=== PATIENT | female | born 1955 | race Two or more races ===

== ENCOUNTER 2019-09-14 09:55 | Emergency (ER) | payer MEDICARE, MEDICAID ==
[~2019-09-14] VITALS: Ht 167.6 cm; Wt 77.1 kg
[~2019-09-14 09:55] MED LIST: ASPI-807 PO; ATEN25TA PO; VALS40TA4 PO
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
[2019-09-14] MEDS ORDERED: LORAZEPAM INJ 2 MG/ML VIAL ONE (10:12)
--- NOTE | 2019-09-14 10:13 | NUR ---
WITNESSED 1.5MG ATIVAN WASTED BY MARTÍNEZ HENDRICKS RN INSTEAD OF 1MG.
--- NOTE | 2019-09-14 10:13 | NUR ---
WASTED 1.5MG OF ATIVAN 2MG/ML. WITNESSED WASTE BY JESENIA PENNY RN.
[2019-09-14] MEDS ORDERED: LORAZEPAM INJ 2 MG/ML VIAL IM ONE (10:30)
--- NOTE | 2019-09-14 10:33 | NUR ---
BROUGHT TO RADIOLOGY VIA [facility] FOR XRAY
--- NOTE | 2019-09-14 10:50 | NUR ---
[place] [employer] AT BEDSIDE
--- NOTE | 2019-09-14 10:56 | NUR ---
HARLEEN JOVEL ([id number]) AT BS.
[2019-09-14] MEDS ORDERED: ACETAMINOPHEN ES 500 MG TABLET ONE (11:16)
[2019-09-14] MEDS ORDERED: ACETAMINOPHEN ES 500 MG TABLET PO ONE (11:30)
--- NOTE | 2019-09-14 12:11 | NUR ---
WHEELED OUT VIA [facility] FOR CT SCAN
[2019-09-14] MEDS ORDERED: MORPHINE SULFATE INJ 2 MG/ML DISP.SYRIN IV ONE (13:00)
--- NOTE | 2019-09-14 13:10 | NUR ---
DR GIRARD SPEAKING WITH DR FAM
[2019-09-14 13:12] LABS: BASOPHILS # (AUTO) 0.1 /CMM (0.0-0.2); BASOPHILS % (AUTO) 0.8 % (0.0-2.0); EOSINOPHILS % (AUTO) 0.3 % (0.0-6.0); HEMATOCRIT 39 % (33-45); HEMOGLOBIN 12.8 g/dL (11.5-14.8); LYMPHOCYTES # (AUTO) 1.1 /CMM (0.8-4.8); LYMPHOCYTES % (AUTO) 6.9 % (20.0-44.0); MEAN CORPUSCULAR HGB CONC 33 g/dl (31.0-36.0); MEAN CORPUSCULAR VOLUME 83 fL (82-100); MONOCYTES # (AUTO) 0.6 /CMM (0.1-1.30); MONOCYTES % (AUTO) 3.8 % (2.0-12.0); NEUTROPHILS # (AUTO) 14.1 /CMM (1.8-8.9); NEUTROPHILS % (AUTO) 88.2 % (43.0-81.0); PLATELET COUNT (AUTO) 292 /CMM (150-450); RED BLOOD CELL COUNT(AUTO) 4.63 MIL/uL (4.0-5.2)
--- NOTE | 2019-09-14 13:33 | NUR ---
PT WILL GO TO [facility] PENDING TRANSFER INFO
[2019-09-14 14:10] LABS: ALBUMIN 3.4 g/dL (3.4-5.0); BILIRUBIN,DIRECT 0.1 mg/dL (0.0-0.2); BILIRUBIN,TOTAL 0.3 mg/dL (0.2-1.0); CALCIUM, SERUM 8.5 mg/dL (8.5-10.1); CREATININE 0.6 mg/dL (0.6-1.3); POTASSIUM 3.9 mmol/L (3.5-5.1); TOTAL PROTEIN, SERUM 7.5 g/dL (6.4-8.2)
--- NOTE | 2019-09-14 14:20 | NUR ---
CARMEL SWIFT CALLED ABOUT ROOM ASSIGNMENT AT [facility]. ROOM IS 4432 AND NUMBER FOR REPORT IS EXT. [id number]. DR THOMAS IS THE ACCEPTING. JAMISON LEFT CONTACT INFO SO WE CAN CALL BACK WITH AMBULANCE ETA AFTER WE ARRANGE TRANSPORT. .
--- NOTE | 2019-09-14 14:47 | NUR ---
ROBINSON LINO TO [facility] ETA [id number], TRIP [id number]
--- NOTE | 2019-09-14 14:47 | NUR ---
REPORT GIVEN TO SHAILA OF [facility].
[2019-09-14 15:46] VITALS: BP 148/87
--- NOTE | 2019-09-14 15:48 | NUR ---
Patient picked up by [facility] in stable condition. Patient will be brought to [facility].
== END 2019-09-14 15:50 | disposition short-term general hospital (02) ==
LOC: ER 10:06
DX: S32.058A Other fracture of fifth lumbar vertebra, initial encounter for closed fracture (principal); S32.048A Other fracture of fourth lumbar vertebra, initial encounter for closed fracture; I10 Essential (primary) hypertension; Z79.82 Long term (current) use of aspirin; Z79.899 Other long term (current) drug therapy; V49.49XA Driver injured in collision with other motor vehicles in traffic accident, initial encounter; Y93.89 Activity, other specified; Y92.413 State road as the place of occurrence of the external cause; Y99.8 Other external cause status
CPT/HCPCS: 36415; 71045; 71250; 72100; 72131; 74176; 80048; 80076; 85025; 85730; 86850; 96372; 96374; 99285; J2060; J2270

== ENCOUNTER 2023-02-17 11:56 | Emergency (ER) | payer MEDICARE, OTHER ==
[~2023-02-17] VITALS: Ht 157.5 cm; Wt 78.9 kg
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
[2023-02-17] MEDS ORDERED: CYCLOBENZAPRINE 10 MG TABLET PO ONE (13:30)
[2023-02-17] MEDS ORDERED: KETOROLAC TROMETHAMINE INJ 60 MG/2 ML VIAL IM ONE (13:30)
[2023-02-17] MEDS ORDERED: KETOROLAC TROMETHAMINE 15 MG/ML VIAL ONE (13:40)
[2023-02-17] MEDS ORDERED: CYCLOBENZAPRINE 10 MG TABLET ONE (13:40)
[2023-02-17] MEDS ORDERED: CYCL5TAB PO (14:30)
[2023-02-17] MEDS ORDERED: IBUP-1953 PO (14:30)
[2023-02-17] MEDS ORDERED: LIDO30AD10 TP (14:30)
[2023-02-17 15:29] VITALS: BP 138/84
== END 2023-02-17 15:31 | disposition home or self-care (01) ==
LOC: ER 12:08
DX: S32.050A Wedge compression fracture of fifth lumbar vertebra, initial encounter for closed fracture (principal); S32.040A Wedge compression fracture of fourth lumbar vertebra, initial encounter for closed fracture; I10 Essential (primary) hypertension; V89.2XXA Person injured in unspecified motor-vehicle accident, traffic, initial encounter; Y93.89 Activity, other specified; Y92.89 Other specified places as the place of occurrence of the external cause; Y99.8 Other external cause status
CPT/HCPCS: 99285; 72131; 96372; 73030; J1885